=== PATIENT | male | born 1940 | race Caucasian/White ===

== ENCOUNTER 2019-08-15 08:31 | Outpatient (CLI) | payer OTHER | END 2019-08-15 23:59 | disposition home or self-care (01) | LOC: CARD 08:31 | PROVIDERS: ATTEND Family Medicine | DX: F03.90 Unspecified dementia, unspecified severity, without behavioral disturbance, psychotic disturbance, mood disturbance, and anxiety (principal) | CPT/HCPCS: 95819 ==